=== PATIENT | female | born 1955 | race Caucasian/White ===

== ENCOUNTER 2018-06-20 08:25 | Outpatient (CLI) | payer OTHER | END 2018-06-20 20:38 | disposition home or self-care (01) | LOC: SMA 08:25 | PROVIDERS: ATTEND Family Medicine | DX: Z12.31 Encounter for screening mammogram for malignant neoplasm of breast (principal) | CPT/HCPCS: 77067 ==

== ENCOUNTER 2020-07-17 08:32 | Outpatient (CLI) | payer OTHER | END 2020-07-19 15:03 | disposition home or self-care (01) | LOC: SMA 08:32 | DX: Z12.31 Encounter for screening mammogram for malignant neoplasm of breast (principal) | CPT/HCPCS: 77067 ==

== ENCOUNTER 2022-07-10 09:24 | Outpatient (CLI) | payer OTHER | END 2022-07-10 18:41 | disposition home or self-care (01) | LOC: SMA 09:24 | PROVIDERS: ATTEND Family Medicine | DX: Z12.31 Encounter for screening mammogram for malignant neoplasm of breast (principal); N64.89 Other specified disorders of breast | CPT/HCPCS: 77067 ==